=== PATIENT | male | born 1970 | race African-American/Black ===

== ENCOUNTER 2019-11-18 17:03 | Emergency (ER) | payer SELFPAY ==
[~2019-11-18] VITALS: Ht 175.3 cm; Wt 85.0 kg
[2019-11-18] MEDS ORDERED: TRAMADOL 50MG TABLET PO ONE (19:15)
[2019-11-18 19:36] VITALS: BP 124/68
== END 2019-11-18 19:38 | disposition home or self-care (01) ==
LOC: ER 17:03
DX: S92.491A Other fracture of right great toe, initial encounter for closed fracture (principal); W22.09XA Striking against other stationary object, initial encounter; Y93.9 Activity, unspecified; Y92.9 Unspecified place or not applicable
CPT/HCPCS: 73620; 99283